=== PATIENT | female | born 1950 | race Caucasian/White ===

== ENCOUNTER 2022-10-21 10:16 | Emergency (ER) | payer MEDICARE ==
[~2022-10-21] VITALS: Ht 162.6 cm; Wt 51.2 kg
[2022-10-21 10:20] VITALS: RESP 16; TEMP 97.8
[2022-10-21] MEDS ORDERED: morphine 2 MG/ML inj. syringe IV PRN (12:45)
[2022-10-21] MEDS ORDERED: ondansetron/PF 4mg/2ml inj IV ONE (12:45)
[2022-10-21 12:47] VITALS: BP 135/60; PULSE 79; O2SAT 97
[2022-10-21] MEDS ORDERED: HYDR-3965 PO (14:01)
== END 2022-10-21 15:09 | disposition home or self-care (01) ==
LOC: ER 10:17
DX: S42.294A Other nondisplaced fracture of upper end of right humerus, initial encounter for closed fracture (principal); Z88.0 Allergy status to penicillin; Z79.899 Other long term (current) drug therapy; W19.XXXA Unspecified fall, initial encounter; Y93.89 Activity, other specified; Y92.89 Other specified places as the place of occurrence of the external cause; Y99.8 Other external cause status
CPT/HCPCS: 73030; 96374; 96375; 99284; J2270; J2405; L3650; A4565